=== PATIENT | male | born 1965 | race Caucasian/White ===

== ENCOUNTER 2021-09-04 18:45 | Emergency (ER) | payer BC, SELFPAY ==
--- NOTE | 2021-09-04 18:53 | ED.GENADULT ---
HPI - General Adult General Chief complaint: Unspecified Stated complaint: Lower rib Pain Time Seen by Provider: 09/04/21 19:19 Source: patient and RN notes reviewed Mode of arrival: ambulatory Limitations: no limitations History of Present Illness HPI narrative: 56-year-old male presents with concern for bilateral mid back pain at the base of the lungs. Reports symptoms started overnight the night before last waking him up at night and pain. He reports he saw his program support clerk the next morning who told him it was likely musculoskeletal. No testing was done at that time. Patient also reports for 3 days he has had cough, mild rhinorrhea, body aches. He has not vaccinated for COVID. Reports cardiac history to include valve replacement, aortic aneurysm MD complaint: rib pain Related Data Home Medications Medication Instructions Recorded Confirmed aspirin [Baby Aspirin] 81 mg PO DAILY 09/04/21 09/04/21 metformin 500 mg PO DAILY 09/04/21 09/04/21 metoprolol tartrate 50 mg PO DAILY 09/04/21 09/04/21 rosuvastatin 40 mg PO DAILY 09/04/21 09/04/21 warfarin 6 mg PO DAILY 09/04/21 09/04/21 Allergies Allergy/AdvReac Type Severity Reaction Status Date / Time No Known Allergies Allergy Verified 09/04/21 19:23 Review of Systems Review of Systems: CONSTITUTIONAL: Denies malaise, chills, sweats, or fever. EYES: Denies visual changes, redness, or discharge. ENT: Reports rhinorrhea, congestion. Denies sinus pain, otalgia or sore throat. CARDIOVASCULAR: Denies chest pain, palpitations, or edema. RESPIRATORY: Reports cough. Denies dyspnea. GASTROINTESTINAL: Denies abdominal pain, vomiting, diarrhea, bloody, or mucous stools. Reports nausea and decreased appetite GENITOURINARY: Denies dysuria or hematuria. SKIN: Denies rash or itching. MUSCULOSKELETAL: Reports mid bilateral back pain, myalgia. NEUROLOGIC: Denies numbness, weakness, or headache. All systems reviewed & are unremarkable except as noted in HPI and below PMFSH Comments At time of signature, agree with nursing past medical, surgical, social and family history. There is no relevant family history pertinent to the presenting complaint Exam Narrative: GENERAL: Well-appearing, well-nourished, and in no acute distress. HEAD: Normocephalic EYES: PERRLA, conjunctivae clear ENT: Nares clear, clear discharge. Mucous membranes moist. TM pearly frederick with dull light reflex bilaterally; no tragal tenderness. Oropharynx erythematous without lesions. Tonsils enlarged and without exudate, no drooling, no hoarseness, no trismus, uvula midline. NECK: Supple. No lymphadenopathy CHEST: Very mild bilateral coarseness, otherwise clear to auscultation, breath sounds equal. No wheezing or stridor. No respiratory distress, speaks in full sentences. HEART: Regular rate and rhythm. No murmur heard. SKIN: Warm, dry, no rash. NEURO: Alert and oriented x3. PSYCH: Normal mood and affect Course Course Emergency Course: Patient's symptoms and exam warrant a chest x-ray. At this time the clinic does not have an x-ray metallurgy laboratory technician, patient is agreeable to return tomorrow morning for a chest x-ray. I will follow-up with this patient with his chest x-ray results. Patient is aware of diagnosis, understands and agrees to treatment plan. Anticipatory guidance given. Patient agrees to follow-up as directed and is aware of reasons to seek care at the emergency department. Portions of this record may have been created with voice recognition software Level of Care: Express Care Visit Vital Signs Vital signs: Reviewed. Medical Decision Making MDM Narrative Medical decision making narrative: Exam findings show no acute concerns or changes; patient is non-toxic appearing and is in no distress. Patient is appropriate for outpatient treatment and follow-up. Critical Care Time Critical Care Time Critical Care Time: No Discharge Plan Discharge Clinical Impression: COVID-19 Patient Disposition: Home, Se
[2021-09-04 19:00] VITALS: BP 139/70; PULSE 72; RESP 22; TEMP 36.9; O2SAT 98
== END 2021-09-04 19:45 | disposition home or self-care (01) ==
PROVIDERS: Emergency Provider Nurse Practitioner; PCP Internal Medicine
DX: U07.1 COVID-19 (principal); Z79.82 Long term (current) use of aspirin; Z79.01 Long term (current) use of anticoagulants
CPT/HCPCS: 87426; 99213; C9803; G0463

== ENCOUNTER → 2021-09-05 08:04 | Outpatient (CLI) | payer BC, SELFPAY ==
--- NOTE | ~2021-09-05 | XR_ITS ---
EXAMINATION: XR chest 2V EXAM DATE: 09/05/2021 16:03 INDICATION: U07.1 - COVID-19 prod cough non smoker . TECHNIQUE: Frontal and lateral projections of the chest obtained and reviewed. There is no prior kyleigh dy for comparison. FINDINGS: Sternotomy wires. Aortic valve replacement. The lungs are clear. There are no pleural effu sions. The cardiomediastinal silhouette is within normal limits. There is no pneumothorax suspected . The bones and soft tissues are unremarkable. IMPRESSION: No acute cardiopulmonary findings. Reviewed, dictated and finalized at location G. C EXECUTIVE
== END ==
PROVIDERS: Visit Provider Nurse Practitioner
DX: U07.1 COVID-19 (principal)
CPT/HCPCS: 71046

== ENCOUNTER 2025-06-04 18:15 | Emergency (ER) | payer BC, SELFPAY ==
--- NOTE | ~2025-06-04 | XR_ITS ---
XR forearm LT 2V INDICATION: pain COMPARISON: None FINDINGS: Single view of the left forearm demonstrate no acute fracture or dislocation. IMPRESSION: No acute fracture or dislocation. Reviewed, dictated and finalized at location S.
--- OUTSIDE RECORDS SUMMARY | 2025-06-04 18:18 | XMS_ITS | Clinical Summary ---
Author Organization [facility] [place] Address [address] [place] [id number] Care Team Providers Care Adjunct Political Science Instructor Name Role Phone Unavailable Primary Care Provider Unavailabl e Social History Tobacco Use Types Packs/Day Years Used Date Smoking Tobacco: Never Assessed Sex and Gender Information Value Date Recorded Sex Assigned at Not on file Legal Sex Male 9:15 PM CDT Gender Identity Not on file Sexual Orientation Not on file Plan of Treatment Health Maintenance Due Date Last Done Comments Colorectal Cancer Screening Colonoscopy (10 Years) 1965 Annual Physical 1968 Hepatitis C 1983 DTaP, Tdap and Td Vaccines ( 1 - Tdap) 1984 Pneumococcal Vaccine: 50+ Ye ars (1 of 1 - PCV) 2015 Zoster Vaccines (1 of 2) 2015 COVID-19 Vaccine (1 - 2023-2 5 season) 2025 Influenza Adult (#1) 2025 RSV Immunization or 60+ Years (1 - 1-dose 75+ series) 2040 Meningococcal B Vaccine Aged Out No l onger eligible based on patient's age to complete this topic Meningococcal Vaccine Aged Out No yesenia isabelle eligible based on patient's age to complete this topic RSV Immunizations Under 20 Months Aged Out No longer eligible based on patient's age to complete this topic
--- OUTSIDE RECORDS SUMMARY | 2025-06-04 18:18 | XMS_ITS | Clinical Summary ---
Author Organization [facility] [employer] Address [address] [place] [address] Care Team Providers Care Director Telehealth Name Role Phone Unavailable Primary Care Provider Unavailabl e Source Comments [facility] [employer],non-owned Affiliates and Associated Physician Practices is amultiple site organization consisting of ambulatory clinics and hospital sitesin [place], [place], [place] and [place]. This disclosure is being madepursuant to the Care Everywhere program and may not contain all information available regarding this patient. Last updated 18.[facility] [employer] Social History Tobacco Use Types Packs/Day Years Used Date Smoking Tobacco: Never Assessed Sex and Gender Information Value Date Recorded Sex Assigned at Not on file Legal Sex Male 2:43 PM CDT Gender Identity Not on file Sexual Orientation Not on file Plan of Treatment Health Maintenance Due Date Last Done Comments COLOGUARD (AGES 45-75) - COL ON CA SCREENING 1965 COLON MONITORING 1965 COLONOSCOPY - COLON CA SCREENING 1965 CT COLONOGRAPHY - COLON CA SCREENING 1965 Colorectal Cancer Screening 1965 FIT - COLON CA SCREENING 1965 FLEX SIG - COLON CA SCREENING 1965 LIPID TESTING 1965 HIV SCREENING 1980 HEPATITIS C SCREENING 05/19/1983 DTAP/TDAP/TD VACCINES (1 - Tdap) 1984 PNEUMOCOCCAL VACCINE 50+ (1 of 1 - PCV) 2015 ZOSTER VACCINE (1 of 2) 2015 DEPRESSION SCREENING 08/22/2024 COVID-19 VACCINE ( - 2023-2 5 season) 2025 INFLUENZA VACCINE (#1) 2025 Respiratory Syncytial Virus (RSV) Vaccine Pt: or over 60 yrs (1 - 1-dose 75+ series) 2040 HEPATITIS B VACCINE Aged Out No longe r eligible based on patient's age to complete this topic HIB VACCINE Aged Out No longer eligi ble based on patient's age to complete this topic HPV VACCINE Aged Out No longer eligi ble based on patient's age to complete this topic MENINGOCOCCAL (Group B) VACC INE SHARED DECISION-MAKING Aged Out No longer eligibl e based on patient's age to complete this topic MENINGOCOCCAL GROUPS A/C/Y/W VACCINE Aged Out No longer eligible b ased on patient's age to complete this topic Insurance [facility]
--- OUTSIDE RECORDS SUMMARY | 2025-06-04 18:18 | XMS_ITS | Encounter Summary ---
Author Organization [facility] Address [address] [place] [address] Care Team Providers Care Composer Teaching Artist Name Role Phone Unavailable Primary Care Provider Unavailabl e Encounter Details Date Type Department Care Team (Late st Contact Info) Description 03/28/2024 Lab Requisition [facility] - DermPath Lab [address] [place] [id number] Eugenio Jones MD [address] [place] [address] Social History Tobacco Use Types Packs/Day Years Used Date Smoking Tobacco: Never Assessed Sex and Gender Information Value Date Recorded Sex Assigned at Not on file Legal Sex Male 2:43 PM CDT Gender Identity Not on file Sexual Orientation Not on file documented as of this encounter Plan of Treatment Not on file documented as of this encounter Procedures Procedure Name Priority Date/Time Associated Diagnosis Comments DERMATOPATHOLOGY Routine 03/27/2024 3:33 AM CDT documented in this encounter Results * DERMATOPATHOLOGY (03/27/2024 3:33 AM CDT) Case Report Dermatopathology Report Case: [id number] Authorizing Provider: Eugenio Jones MD Collected: 03/27/2024 03:33 AM Ordering Location: [facility] - Received: 03/28/2024 03:04 PM DermPath Lab Pathologist: Lovely Castillo MD Specimen: Skin, right upper arm 12:57 PM CDT DERMATOPATHOLOGY LABORATORY Final Diagnosis Specimen A. SKIN, right upper arm: VENOUS COLLIER (R23.8) 12:57 PM CDT DERMATOPATHOLOGY LABORATORY at 1257 CDT Clinical History R/O Hemangioma vs neoplasm 12:57 PM CDT DERMATOPATHOLOGY LABORATORY Gross Description Specimen A: Received is one formalin filled container labeled with the patient's name and designated right upper arm. The specimen consists of a shave biopsy measuring 7x5x2 mm. Jar 0. 12:57 PM CDT DERMATOPATHOLOGY LABORATORY Microscopic Description Specimen A. SKIN, right upper arm: There is a solitary large vascular channel in the upper dermis. 12:57 PM CDT DERMATOPATHOLOGY LABORATORY Disclaimer An external and internal positive and negative controls are appropriate for the histochemical, immunohistochemical and immunofluorescence stain(s) in this case (if any), except where stated explicitly. The performance characteristics of the stain(s) cited in this report were developed and its performance characteristic determined by the Dermatopathology Laboratory at [facility], directed by Dr. Wai Castillo. These tests need not be, and therefore are not, approved by the [place] Food and Drug Administration. The tests are used for clinical purposes. Billing Codes Specimen Charges Stain Charges 31862 1 4 12:57 PM CDT DERMATOPATHOLOGY LABORATORY Embedded Images 12:57 PM CDT DERMATOPATHOLOGY LABORATORY Pathology/Cytolo gy TISSUE SPECIMEN FROM SKIN / Unknown 03/27/2024 3:33 AM CDT 03/28/2024 3:04 PM CDT Eugeino Jones MD LAB - PATHOLOGY/CYTOLOGY ORDERAB LES Final Result DERMATOPATHOLOGY LABORATORY [facility] - Department of Dermatology [address] [place] [address], [facility] [phone] documented in this encounter Visit Diagnoses Not on filedocumented in this encounter
[2025-06-04 18:19] VITALS: BP 164/83; PULSE 89; RESP 18; TEMP 36.4; O2SAT 100
[2025-06-04] MEDS: TETANUS,DIPHTHERIA,AC PERTUSSIS ADULT (0.5 ML) BOOSTRIX IM (18:57)
[2025-06-04] MEDS: LIDOCAINE, EPINEPHRINE, TETRACAINE VISCOUS SOLN 3 ML TOPICAL (19:05)
[2025-06-04] MEDS: CEPHALEXIN 500 MG CAPSULE PO (20:11)
[2025-06-04 20:19] VITALS: BP 143/77; PULSE 89; RESP 18; O2SAT 100
--- NOTE | 2025-06-04 21:46 | ED.WOUNDLAC ---
HPI - Wound/Laceration General Chief Complaint: Wound/Laceration Stated Complaint: laceration to L. forearm from chainshow Time Seen by Provider: 06/04/25 18:23 History of Present Illness HPI narrative: 60-year-old otherwise healthy male presenting with minor laceration/skin avulsion to his left forearm. He was using a chainsaw and it was desaturating and clipped his skin and avulsed some of the tissue on the ulnar aspect of his left wrist. Significant pain. Does not know his tetanus is up today. No active bleeding. Was otherwise in her normal state of health. Full range of motion. No other injuries. Related Data Home Medications ?Medication ?Instructions ?Recorded ?Confirmed ?Last Taken ?Type aspirin 81 mg chewable tablet 81 mg PO DAILY 09/04/21 09/04/21 Unknown History metformin 500 mg tablet 500 mg PO DAILY 09/04/21 09/04/21 Unknown History metoprolol tartrate 50 mg tablet 50 mg PO DAILY 09/04/21 09/04/21 Unknown History rosuvastatin 40 mg tablet 40 mg PO DAILY 09/04/21 09/04/21 Unknown History warfarin 6 mg tablet 6 mg PO DAILY 09/04/21 09/04/21 Unknown History Allergies Allergy/AdvReac Type Severity Reaction Status Date / Time No Known Allergies Allergy Verified 09/04/21 19:23 Review of Systems Review of Systems: As reviewed above in HPI Exam Narrative: GENERAL: [Well-appearing, well-nourished, and in no acute distress.] HEAD: [Normocephalic, atraumatic.] EYES: [PERRLA and EOMI.] ENT: Nares clear, no rhinorrhea or epistaxis. Mucous membranes moist. NECK: Supple. CHEST: [Clear to auscultation. No respiratory distress.] HEART: [Regular rate and rhythm]. No murmur heard. [Normal peripheral pulses.] ABDOMEN: [Soft, nondistended], [nontender], [No rigidity or guarding] EXTREMITIES: Normal range of motion. [No edema.] SKIN: Superficial skin tear in a jagged pattern approximately 5 cm in length on the left ulnar aspect of the forearm. No active bleeding, no significant skin dehiscence and no deep involvement. Some dirt and debris evident which was easily debrided. NEURO: [No focal deficits]. Alert and oriented [x3.] PSYCH: [Normal mood and affect.] Course Vital Signs Vital signs: Vital Signs Temperature 36.4 C 06/04/25 18:19 Pulse Rate 89 06/04/25 18:19 Respiratory Rate 18 06/04/25 18:19 Blood Pressure 164/83 H 06/04/25 18:19 Pulse Oximetry 100 06/04/25 18:19 Temperature 36.4 C 06/04/25 18:19 Pulse Rate 89 06/04/25 20:19 Respiratory Rate 18 06/04/25 20:19 Blood Pressure 143/77 H 06/04/25 20:19 Pulse Oximetry 100 06/04/25 20:19 Procedures Laceration Laceration 1: Date: 06/04/25 Site: upper extremity Side (If applicable): left Size (cm): 5 Description: irregular and contaminated Depth: simple, single layer Local Anesthetic: other anesthetic (let gel) Amount of anesthesia used (mL): 3 Pre-repair: wound explored, irrigated extensively, minor debridement and deep structures intact ====== Skin Level ====== Skin layer closed with: dermabond and steri strips ====== Subcutaneous Layer ====== ====== Muscle Layer ====== ====== Tendon Layer ====== Dressing: non adherent dressing applied over top. Hemostasis achieved MDM - Wound/Laceration MDM Narrative Medical decision making narrative: 60-year-old otherwise healthy male presenting with minor laceration/skin avulsion to his left forearm. He was using a chainsaw and it was desaturating and clipped his skin and avulsed some of the tissue on the ulnar aspect of his left wrist. Significant pain. Does not know his tetanus is up today. No active bleeding. Was otherwise in her normal state of health. Full range of motion. No other injuries. Superficial skin tear in a jagged pattern approximately 5 cm in length on the left ulnar aspect of the forearm. No active bleeding, no significant skin dehiscence and no deep involvement. Some dirt and debris evident which was easily debrided. Patient had let gel applied to the area and debrided successfully at bedside without any retained foreign body. X-rays obtained that showed no acute abnormality. Skin was repaired with closure of the avulsion flaps with Dermabond and Steri-Strips with good wound approximation. Hemostasis achieved. Safe for discharge and given a tetanus update. Given return precautions as well as Keflex for antibiotics given the dirty wound. Medical Records Attestation: I reviewed the patient's medical records. Imaging Data Attestation: I personally reviewed and interpreted this imaging study as follows: My impression: Impressions Forearm X-Ray 06/04/25 19:55 IMPRESSION: No acute fracture or dislocation. Discharge Plan Discharge Clinical Impression: Laceration, Avulsion of skin Patient Disposition: Home Condition: Stable Instructions: Antibiotic Form, Laceration (ED), Skin Avulsion (ED), Skin Adhesive Care (ED), Skin Adhesive Strips (ED) Additional Instructions: You have a superficial avulsion to the skin on the ulnar surface of your left wrist. We repaired this with Dermabond and Steri-Strips. Keep the area covered and away from water for 24 hours to allow the matrix to fully cure. Allow the Steri-Strips to flake off similar to scabs over the next 3-5 days naturally. Expect small amounts of oozing but if he have significant bleeding applied direct pressure and return to the hospital. Take the antibiotics twice a day for the next 5 days. He can take Tylenol and ibuprofen for any aches or pains. Return with any signs of infection or other new concerns. Patient Language: Japanese Prescriptions: New cephalexin 500 mg capsule 500 mg PO Q12H 5 Days Qty: 10 0RF No Action metformin 500 mg tablet 500 mg PO DAILY warfarin 6 mg tablet 6 mg PO DAILY metoprolol tartrate 50 mg tablet 50 mg PO DAILY aspirin [Baby Aspirin] 81 mg Tablet,Chewable 81 mg PO DAILY rosuvastatin 40 mg tablet 40 mg PO DAILY methylprednisolone [Medrol (Shmuel)] 4 mg tablets,dose pack See Rx Instructions .ROUTE .COMPLEX Qty: 21 0RF Rx Instructions: orally per package directions Follow-up/Referrals: Tenzin,Mary Renteria MD [Primary Care Provider] Time of Disposition: 19:59
== END 2025-06-04 20:20 | disposition home or self-care (01) ==
PROVIDERS: Emergency Provider Student in an Organized Health Care Education/Training Program; PCP Internal Medicine
DX: S51.812A Laceration without foreign body of left forearm, initial encounter (principal); W29.3XXA Contact with powered garden and outdoor hand tools and machinery, initial encounter; Z23 Encounter for immunization
CPT/HCPCS: 12002; 73090; 90471; 90715; 99283; A9270